=== PATIENT | female | born 1930 | race Caucasian/White ===

== ENCOUNTER 2017-08-22 19:39 | Emergency (ER) | payer MEDICARE ==
[2017-08-22 20:02] VITALS: BP 147/65
--- NOTE | 2017-08-22 20:55 | ER Document Report ---
ED Oral Problem - General Chief Complaint: Toothache Stated Complaint: TOOTH PAIN Time Seen by Provider: 08/22/17 20:53 Mode of Arrival: Wheelchair Information source: Patient, Relative Notes: Patient is an 87-year-old female who presents to the ER today for 1 day of left jaw pain, swelling, redness. Patient denies any fevers or chills, has not seen a dentist for this. Patient denies any drainage or specific tooth pain. TRAVEL OUTSIDE OF THE [place] IN LAST 30 DAYS: No - Related Data Allergies/Adverse Reactions: No Known Allergies Allergy (Unverified 08/22/17 19:46) Past Medical History - General Information source: Patient, Relative - Social History Smoking Status: Never Smoker Chew tobacco use (# tins/day): No Frequency of alcohol use: None Drug Abuse: None Family History: Reviewed & Not Pertinent Patient has suicidal ideation: No Patient has homicidal ideation: No Renal/ Medical History: Denies: Hx Peritoneal Dialysis Review of Systems - Review of Systems Constitutional: No symptoms reported EENT: See HPI Cardiovascular: No symptoms reported Respiratory: No symptoms reported Gastrointestinal: No symptoms reported Genitourinary: No symptoms reported Female Genitourinary: No symptoms reported Musculoskeletal: No symptoms reported Skin: No symptoms reported Hematologic/Lymphatic: No symptoms reported Neurological/Psychological: No symptoms reported Physical Exam - Vital signs Vitals: Temp Pulse Resp BP Pulse Ox 98.9 F 95 20 147/65 H 96 08/22/17 19:59 08/22/17 19:59 08/22/17 19:59 08/22/17 19:59 08/22/17 19:59 - Notes Notes: PHYSICAL EXAMINATION: GENERAL: Well-appearing and in no acute distress. HEAD: Atraumatic, normocephalic. EYES: Pupils equal round and reactive to light, extraocular movements intact, sclera anicteric, conjunctiva are normal. ENT: ear canals without erythema or foreign body, TMs pearly angeles with good bony landmarks, nares patent, oropharynx clear without exudates. Moist mucous membranes. no dental caries or tenderness, no obvious abscess orally, left submandibular gland enlarged, tender, erythematous to left lower jaw NECK: Normal range of motion, supple without lymphadenopathy LUNGS: CTAB and equal. No wheezes rales or rhonchi. HEART: Regular rate and rhythm without murmurs EXTREMITIES: Normal range of motion, no pitting edema. No cyanosis. NEUROLOGICAL: Cranial nerves grossly intact. Normal sensory/motor exams. PSYCH: Normal mood, normal affect. SKIN: Warm, Dry, normal turgor, no rashes or lesions noted Course - Re-evaluation Re-evalutation: 08/23/17 02:30 pt placed on clindamycin and given antiinflammatories, but advised to suck on lemon drops as that is a treatment for blocked submandibular gland duct. - Vital Signs Vital signs: Temp Pulse Resp BP Pulse Ox 98.9 F 95 20 147/65 H 96 08/22/17 19:59 08/22/17 19:59 08/22/17 19:59 08/22/17 19:59 08/22/17 19:59 Discharge - Discharge Clinical Impression: Sialadenitis Condition: Stable Disposition: HOME, SELF-CARE Additional Instructions: Return immediately for any new or worsening symptoms. Follow up with primary care provider, call tomorrow to make followup appointment. Please get some lemon drops and suck on them. Prescriptions: Clindamycin HCl 300 mg PO TID #30 capsule Ibuprofen [Motrin 800 mg Tablet] 800 mg PO Q8H PRN #30 tab PRN Reason:
== END 2017-08-22 21:09 | disposition home or self-care (01) ==
LOC: ER 19:39
DX: K11.20 Sialoadenitis, unspecified (principal); K08.89 Other specified disorders of teeth and supporting structures; R68.84 Jaw pain; R22.0 Localized swelling, mass and lump, head
CPT/HCPCS: 99282

== ENCOUNTER 2018-10-02 09:53 | Emergency (ER) | payer MEDICARE ==
[2018-10-02 10:06] VITALS: BP 147/57
--- NOTE | 2018-10-02 10:33 | ER Document Report ---
ED Fall - General Chief Complaint: Wrist Injury Stated Complaint: HAND INJURY Time Seen by Provider: 10/02/18 10:16 Primary Care Provider: [facility] [Provider Group] - Follow up as needed LILIAM CULLEN DO [NO LOCAL MD] - Follow up as needed Mode of Arrival: Wheelchair Information source: Patient, Relative Notes: 88-year-old female presented to ED for complaint of fall down the stairs yesterday with pain to her right hand wrist and knee. She also has moderate bruising and swelling to the left elbow but states that it does not hurt and she does not really need a x-ray of that. She does have full strength range of motion to the elbow. She does have full range of motion to the right hand and knee but they are painful. Patient is alert oriented respirations regular and unlabored I did offer her Tylenol or Motrin and she refused both states that not really that much pain she just want to make sure they were not broken. She is alert oriented respirations regular and unlabored speaking in full sentences. TRAVEL OUTSIDE OF THE [place] IN LAST 30 DAYS: No - HPI Occurred: Yesterday Where: Home, Indoors Context: Slipped - Fell down the stairs Associated symptoms: None Location of injury/pain: Hand - Right, Knee - Right, Wrist - Right Quality of pain: Achy Severity: Mild Pain Level: 2 - Related data Allergies/Adverse Reactions: No Known Allergies Allergy (Unverified 08/22/17 19:46) Past Medical History - General Information source: Patient - Social History Smoking Status: Never Smoker Chew tobacco use (# tins/day): No Frequency of alcohol use: None Drug Abuse: None Lives with: Family Family History: Reviewed & Not Pertinent Patient has suicidal ideation: No Patient has homicidal ideation: No - Past Medical History Cardiac Medical History: Reports: Hx Hypertension, Other - 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 Pulmonary Medical History: Reports: Hx COPD - Very mild Neurological Medical History: Reports: None Renal/ Medical History: Denies: Hx Peritoneal Dialysis Malignancy Medical History: Reports: None GI Medical History: Reports: None Musculoskeletal Medical History: Reports Hx Arthritis Skin Medical History: Reports None Psychiatric Medical History: Reports: None Traumatic Medical History: Reports: None Infectious Medical History: Reports: None Past Surgical History: Reports: Other - Cataracts both eyes Review of Systems - Review of Systems Constitutional: No symptoms reported EENT: No symptoms reported Cardiovascular: No symptoms reported Respiratory: No symptoms reported Gastrointestinal: No symptoms reported Genitourinary: No symptoms reported Female Genitourinary: No symptoms reported Musculoskeletal: Joint pain - Pain bruising right hand right wrist right thumb left elbow Skin: Change in color - Pain bruising right hand right wrist right thumb left elbow Hematologic/Lymphatic: No symptoms reported Neurological/Psychological: No symptoms reported Physical Exam - Vital signs Vitals: Temp Pulse Resp BP Pulse Ox 97.8 F 89 20 147/57 H 95 10/02/18 10:03 10/02/18 10:03 10/02/18 10:03 10/02/18 10:03 10/02/18 10:03 Interpretation: Normal - General General appearance: Appears well, Alert - HEENT Head: Normocephalic, Atraumatic Eyes: Normal Pupils: PERRL - Respiratory Respiratory status: No respiratory distress Chest status: Nontender Breath sounds: Normal Chest palpation: Normal - Cardiovascular Rhythm: Regular Heart sounds: Normal auscultation Murmur: No - Abdominal Inspection: Normal Distension: No distension Bowel sounds: Normal Tenderness: Nontender Organomegaly: No organomegaly - Back Back: Normal, Nontender - Extremities General upper extremity: Normal ROM, Normal temperature General lower extremity: Normal color, Normal temperature, Normal weight bearing. No: Roscoe's sign Elbow: Ecchymosis - left Wrist: Tender, Ecchymosis. No: Abrasion, Axial load of thumb pain, Deformity, Dislocation, Instability, Laceration, Limited ROM - Pain with range of motion but no limited range of motion, Navicular tenderness Hand: Tender, Ecchymosis, No evidence of human bite, No evidence of FB, Swelling. No: Abrasion, Deformity, Dislocation, Instability, Laceration, Nail injury, Tendon deficit Knee: Tender, Ecchymosis, Pain with ROM, Patellar tendon intact, Tender joint line. No: Abrasion, Deformity, Dislocation, Drawer's test instability, Instability, Joint effusion, Laceration, Laxity with valgus stress, Laxity with varus stress, Popliteal fossa tender, Unable to bear weight - Neurological Neuro grossly intact: Yes Cognition: Normal Orientation: AAOx4 [place] Coma Scale Eye Opening: Spontaneous Dre Coma Scale Verbal: Oriented [place] Coma Scale Motor: Obeys Commands Dre Coma Scale Total: 15 Speech: Normal Motor strength normal: LUE, RUE, LLE, RLE Sensory: Normal - Psychological Associated symptoms: Normal affect, Normal mood - Skin Skin Temperature: Warm Skin Moisture: Dry Skin Color: Normal, Ecchymosis - Left elbow right hand and thumb right knee Location of irregularity: Extremities Course - Re-evaluation Re-evalutation: 10/02/18 11:36 Discussed x-rays with patient and written report and CD of x-rays given to patient to follow-up with primary doctor and with orthopedics. Patient states she did not need any splints as she is able to walk and move her thumb she just want to make sure there was no obvious fractures. Patient is a very alert oriented very young for an 88-year-old person very minimal medical history. She states she will call her primary doctor tomorrow. She is here with her family. Patient was able to verbalize understanding and agreement with treatment plan and patient was discharged home. - Vital Signs Vital signs: Temp Pulse Resp BP Pulse Ox 97.8 F 89 20 147/57 H 95 10/02/18 10:03 10/02/18 10:03 10/02/18 10:03 10/02/18 10:03 10/02/18 10:03 - Diagnostic Test Radiology reviewed: Image reviewed, Reports reviewed Discharge - Discharge Clinical Impression: Fall (on) (from) other stairs and steps, initial encounter, Other sprain of right thumb, initial encounter Right knee injury Qualifiers: Encounter type: initial encounter Qualified Code(s): S89.91XA - Unspecified injury of right lower leg, initial encounter Left elbow contusion Qualifiers: Encounter type: initial encounter Qualified Code(s): S50.02XA - Contusion of left elbow, initial encounter Condition: Stable Disposition: HOME, SELF-CARE Additional Instructions: CONTUSION: Your injury has resulted in a contusion -- a crushing of the deep tissues. No injury to important structures was detected during the physician's exam. Contusions vary in the amount of pain they cause, and in the length of time required for healing. Typically, the area will become bruised, and will remain painful to touch for two or three weeks. However, most patients are back to working and playing within a few days. After the initial period of rest and cold-packs, your symptoms (together with the doctor's recommendations) will determine how rapidly you can get back to full activity. Usually this means "do what feels okay, but don't do things that hurt." If re-examination was recommended, it's important to follow up as instructed. Call the doctor or return any time if pain increases, if swelling becomes severe, if you develop numbness or weakness in an injured extremity, or if any other alarming symptoms occur. SPRAIN: Your injury is a sprain. A sprain results from stretching or tearing of the ligaments, usually from a twisting injury. The ligaments will require time and protection in order to heal properly. Many sprains are quite disabling and should be taken seriously. The usual initial treatment of sprains is cold packs, elevation, and rest of the injured area. Your physician has assessed the seriousness of your ligament injury, and has outlined a treatment plan. Understand that this treatment may change, depending on how you progress. If a re-examination was recommended, it is important that you follow up as instructed. Call the doctor any time if there is severe pain, numbness, or loss of function in the injured area. ICE & ELEVATION: Apply ice packs frequently against the painful area. Many different schedules are recommended, such as "20 minutes on, 20 minutes off" or "one hour ice, two hours rest." If you need to work, you may need to go longer between ice treatments. You should plan to have the area ice packed AT LEAST one-fourth of the time. The ice should be applied over the wrap, tape, or splint, or over a layer of cloth -- not directly against the skin. Some ice bags have a built-in cloth and can be put directly on the skin. Your injured part should be elevated as much as possible over the next 48 hours. Try to keep the injury above the level of the heart. Avoid use of the injured area. Elevation and rest will decrease the swelling. USE OF [id number] IBUPROFEN: Ibuprofen (Advil, Nuprin, Medipren, Motrin IB) is a medication for fever and pain control. In addition, it has anti- inflammatory effects which may be beneficial, especially in the treatment of injuries. It's best to take ibuprofen with food. Persons with ulcer disease or allergy to aspirin should notify their physician of this before taking ibuprofen. Ibuprofen can be given every four to six hours, for a total of four doses daily. Age Pain or fever dose Antiinflammatory dose 6-8 yr 200 mg (1 tab) 200 mg (1 tab) 9-11 yr 200 mg (1 tab) 200-400 mg (1-2 tab) 11-14 yr 200-400 mg (1-2 tab) 400 mg (2 tab) 15-adult 400 mg (2 tab) 600 mg (3 tab) Acetaminophen Acetaminophen may be taken for pain relief or fever control. It's much safer than aspirin, offering a wider range of "safe" dosages. It is safe during . Some brand names are Tylenol, Panadol, Datril, Anacin 3, Tempra, and Liquiprin. Acetaminophen can be repeated every four hours. The following are maximum recommended dosages: WEIGHT Dose Drops Elixir Chewable(80mg) (LBS.) drprs=droppers tsp=teaspoon 6 40 mg .4 ml (1/2) 6-11 80 mg .8 ml (full) 1/2 tsp 1 tab 12-16 120 mg 1 1/2 drprs 3/4 tsp 1 1/2 tabs 17-23 160 mg 2 drprs 1 tsp 2 tabs 24-30 240 mg 3 drprs 1 1/2 tsp 3 tabs 30-35 320 mg 2 tsp 4 tabs 36-41 360 mg 2 1/4 tsp 4 1/2 tabs 42-47 400 mg 2 1/2 tsp 5 tabs 48-53 480 mg 3 tsp 6 tabs 54-59 520 mg 3 1/4 tsp 6 1/2 tabs 60-64 560 mg 3 1/2 tsp 7 tabs 65-70 600 mg 3 3/4 tsp 7 1/2 tabs 71-76 640 mg 4 tsp 8 tabs 77-82 720 mg 4 1/2 tsp 9 tabs 83-88 800 mg 5 tsp 10 tabs >89 pounds or adults 650 mg to 900 mg Acetaminophen can be repeated every four hours. Maximum daily dose not to exceed 4000 mg. These maximum recommended dosages are slightly higher than the dosages written on the product container, but these dosages are very safe and well below the toxic dosage for acetaminophen. Knee Exercise Program It's important to strengthen the muscles around the knee. This protects the injured area and stabilizes a knee that's been loosened by ligament injury. EARLY - Even when motion of the knee is painful (even when wearing a splint), you can begin isometric "quads" exercises. While sitting, hold the knee out, and contract the muscles to stiffen it. It shouldn't be straightened all the way -- stiffen it in a slightly-bent position. Lift the leg and draw a "T" with your foot, up to 100 times. When it becomes easy, add a weight on your foot. LATE - When the doctor advises you, you can begin moving the knee against resistance. The front muscles (quadriceps) are most important. While sitting at a [employer], straighten the knee forcefully while pushing a weight up with your ankle. Start with five to 10 pounds. Do 10 to 20 repetitions, increasing the weight as tolerated. Don't use more weight than is comfortable! Over a few weeks, work up to 35 to 50 pounds. Athletes should try to reach 70 to 90 pounds. Your x-ray showed degenerative changes but did not show any acute fractures or dislocations. I have given you a written report of your x-rays as well as a CD of your x-rays for you to follow-up with your primary care doctor. They may determine that she need repeat x-rays to ensure there is no acute fractures. Also need to follow-up with orthopedics concerning this hand it is very bruised and swollen. The x-rays do not show an acute injury but I need you to make sure he had full range of motion of his hand. FOLLOW-UP CARE: If you have been referred to a physician for follow-up care, call the physicians office for an appointment as you were instructed or within the next two days. If you experience worsening or a significant change in your symptoms, notify the physician immediately or return to the Emergency Department at any time for re-evaluation. Forms: Elevated Blood Pressure Referrals: LILIAM CULLEN DO [NO LOCAL MD] - Follow up as needed [facility] [Provider Group] - Follow up as needed
--- NOTE | 2018-10-02 11:11 | RADIOLOGY REPORT (SQ) ---
EXAM DESCRIPTION: HAND RIGHT 3 VIEWS COMPLETED DATE/TIME: 10/02/2018 10:49 am REASON FOR STUDY: fall yesterday pain and swelling COMPARISON: None. EXAM PARAMETERS: NUMBER OF VIEWS: Three views. TECHNIQUE: AP, lateral and oblique radiographic images acquired of the right hand. LIMITATIONS: None. FINDINGS: MINERALIZATION: Normal. BONES: No acute fracture or dislocation. No worrisome bone lesions. JOINTS: Degenerative changes in numerous interphalangeal joints with sclerosis and osteophytes. SOFT TISSUES: No soft tissue swelling. No foreign body. There are a few radiopaque densities in the distal 2nd finger which may be on the skin surface or fingernail. OTHER: No other significant finding. IMPRESSION: DEGENERATIVE CHANGES. NO ACUTE FRACTURE. RADIOPAQUE DENSITIES IN THE DISTAL 2ND FINGER DESCRIBED. TECHNICAL DOCUMENTATION: JOB ID: [id number] [employer]- All Rights Reserved Reading location - IP/workstation name: [email or web address]
--- NOTE | 2018-10-02 11:12 | RADIOLOGY REPORT (SQ) ---
EXAM DESCRIPTION: WRIST RIGHT 3 VIEWS COMPLETED DATE/TIME: 10/02/2018 10:49 am REASON FOR STUDY: fall yesterday pain and swelling COMPARISON: None. NUMBER OF VIEWS: Three views. TECHNIQUE: AP, lateral, and oblique radiographic images acquired of the right wrist. LIMITATIONS: None. FINDINGS: MINERALIZATION: Normal. BONES: No acute fracture or dislocation. Degenerative changes with joint space narrowing and scleros is. No worrisome bone lesions. Normal alignment. SOFT TISSUES: No soft tissue swelling. No foreign body. OTHER: No other significant finding. IMPRESSION: DEGENERATIVE CHANGES. NO RADIOGRAPHIC EVIDENCE OF ACUTE INJURY. TECHNICAL DOCUMENTATION: JOB ID: [id number] [employer]- All Rights Reserved Reading location - IP/workstation name: [email or web address]
--- NOTE | 2018-10-02 11:12 | RADIOLOGY REPORT (SQ) ---
EXAM DESCRIPTION: KNEE RIGHT 4 VIEWS COMPLETED DATE/TIME: 10/02/2018 10:49 am REASON FOR STUDY: fall yesterday pain and swelling COMPARISON: None. NUMBER OF VIEWS: Four views. TECHNIQUE: AP, lateral, and both oblique radiographic images acquired of the right knee. LIMITATIONS: None. FINDINGS: MINERALIZATION: Normal. BONES: No acute fracture or dislocation. No worrisome bone lesions. JOINT: No effusion. SOFT TISSUES: No soft tissue swelling. No radio-opaque foreign body. OTHER: No other significant finding. IMPRESSION: NEGATIVE STUDY OF THE RIGHT KNEE. NO RADIOGRAPHIC EVIDENCE OF ACUTE INJURY. TECHNICAL DOCUMENTATION: JOB ID: [id number] [employer]- All Rights Reserved Reading location - IP/workstation name: [email or web address]
== END 2018-10-02 11:47 | disposition home or self-care (01) ==
LOC: ER 09:53
DX: S63.601A Unspecified sprain of right thumb, initial encounter (principal); S80.01XA Contusion of right knee, initial encounter; S60.221A Contusion of right hand, initial encounter; S60.211A Contusion of right wrist, initial encounter; S50.02XA Contusion of left elbow, initial encounter; M79.641 Pain in right hand; M25.531 Pain in right wrist; M25.561 Pain in right knee; W10.9XXA Fall (on) (from) unspecified stairs and steps, initial encounter; Y92.009 Unspecified place in unspecified non-institutional (private) residence as the place of occurrence of the external cause; I10 Essential (primary) hypertension; J44.9 Chronic obstructive pulmonary disease, unspecified
CPT/HCPCS: 99283